=== PATIENT | female | born 1970 | race Caucasian/White ===

== ENCOUNTER 2023-11-13 06:29 | Day surgery (SDC) | payer BC ==
[~2023-11-13 06:29] MED LIST: Midazolam 1 MG/ML 2 ML SDV ONE; fentaNYL 100 MCG/2 ML SDV ONE
[2023-11-13] MEDS ORDERED: fentaNYL 100 MCG/2 ML SDV IV ONE (06:30)
[2023-11-13] MEDS ORDERED: Midazolam 1 MG/ML 2 ML SDV IV ONE (06:30)
[2023-11-13] MEDS: Dextrose 5%-0.45% NaCl 1,000 ML IV SCH (07:01)
[2023-11-13] MEDS: fentaNYL 100 MCG/2 ML SDV IV ONE ×2 (07:10→07:11)
[2023-11-13] MEDS: Midazolam 1 MG/ML 2 ML SDV IV ONE ×5 (07:11→07:17)
== END 2023-11-13 09:08 | disposition home or self-care (01) ==
LOC: DL.ENDO 06:29
PROVIDERS: ATTEND Internal Medicine Gastroenterology
DX: Z12.11 Encounter for screening for malignant neoplasm of colon (principal); E78.5 Hyperlipidemia, unspecified; D72.820 Lymphocytosis (symptomatic); Z90.710 Acquired absence of both cervix and uterus; Z79.899 Other long term (current) drug therapy
CPT/HCPCS: 45378; J2250; J3010; J7799